=== PATIENT | male | born 1990 | race Caucasian/White ===

== ENCOUNTER 2020-06-20 06:39 | Emergency (ER) | payer OTHER ==
[2020-06-20 08:26] LABS: BASOPHIL 0.3 % (0-2); EOSINOPHIL 0.9 % (0-5); HCT 47.1 % (42.0-52.0); HGB 16.2 g/dl (13.2-18.0); LYMPHOCYTE 7.5 % (15-48); MCH 29.8 pg (25.0-31.0); MCHC 34.4 g/dL (32.0-36.0); MCV 86.6 fL (78.0-100.0); MONOCYTE 8.6 % (0-12); MPV 11.6 fL (6.0-9.5); NEUTROPHIL 82.4 % (41-80); NRBC 0; PLT 176 K/uL (150-400); RBC 5.44 M/uL (4.70-6.00); RDW 12.2 % (11.5-14.0); WBC 6.9 K/uL (4.0-10.5)
[2020-06-20 08:49] LABS: INR 1.03 (0.9-1.2); PROTHROMBIN TIME 12.8 SECONDS (11.4-13.6)
[2020-06-20 08:58] LABS: BILIRUBIN - TOTAL 0.7 mg/dL (0.2-1.0); BUN/CREAT RATIO (CALC) 12.4 RATIO; CREATININE 1.13 mg/dL (0.67-1.17); MAGNESIUM 2.1 mg/dL (1.8-2.4); POTASSIUM 3.8 mmol/L (3.5-5.1)
[2020-06-20] MEDS ORDERED: ZOFRAN4 M1 PO (09:34)
[2020-06-20] MEDS ORDERED: LOPERAMIDE HCL PO (09:34)
[2020-06-20 10:02] LABS: BILIRUBIN 1+ mg/dL (NEGATIVE); BLOOD NEGATIVE Ery/uL (NEGATIVE); CLARITY CLEAR (CLEAR); COLOR YELLOW (YELLOW); GLUCOSE (U) NORMAL (NORMAL); LEUKOCYTES NEGATIVE Leu/uL (NEGATIVE); NITRITE NEGATIVE (NEGATIVE); PROTEIN TRACE (LOW) mg/dL (NEGATIVE); SPECIFIC GRAVITY 1.025 (1.001-1.030); pH 6.5 (5.0-9.0)
[2020-06-20 10:09] LABS: MUCOUS MODERATE
[2020-06-20 10:10] LABS: BACTERIA TRACE
== END 2020-06-20 09:55 | disposition home or self-care (01) ==
LOC: FER 06:39
PROVIDERS: Emergency Medicine
DX: K52.9 Noninfective gastroenteritis and colitis, unspecified (principal)
CPT/HCPCS: 36415; 80053; 81001; 83690; 83735; 84145; 85025; 85610; 87339; J2270; J2405; J7030